=== PATIENT | male | born 1970 | race Caucasian/White ===

== ENCOUNTER 2017-04-21 16:35 | Emergency (ER) | payer OTHER ==
[~2017-04-21] VITALS: Ht 180.3 cm; Wt 119.0 kg
[~2017-04-21 16:35] MED LIST: CTP1; DSY50; LISI-461; PRLSR20 PO; SERT-234; SNG10
[2017-04-21 16:42] VITALS: BP 140/84; PULSE 93; TEMP 37.3; Ht 180.3 cm; Wt 119.0 kg
[2017-04-21 16:46] VITALS: O2SAT 99
[2017-04-21] MEDS ORDERED: ALBUT/IPRATROP 3MG/0.5MG NEB 3 ML VIAL INH STA (16:51)
[2017-04-21 16:55] VITALS: O2SAT 96
[2017-04-21] MEDS ORDERED: GLC/500 PO (17:10)
[2017-04-21] MEDS ORDERED: CARV3.122 PO (17:10)
[2017-04-21] MEDS ORDERED: SPRIN/30 INH (17:10)
[2017-04-21] MEDS ORDERED: GABA-113 PO (17:10)
--- NOTE | 2017-04-21 17:38 | EMERGENCY ROOM VISIT NOTE ---
History Report prepared by Annamarie: Jose J Brian Under the Supervision of: Dr. Colin Rob D.O. First contact with patient: 16:42 Chief Complaint: SHORTNESS OF BREATH Stated Complaint: SOB History of Present Illness The patient is a 46 year old male who presents to the Emergency Room with complaints of shortness of breath that began earlier today. The patient presents from [facility]. He was being transferred to [facility] today, but corrections decided to send him back. However, there was not a bus that could take him back to [place], so he was going to be sent somewhere else. He has a history of COPD and became dyspneic during these transfers. He denies any other symptoms. Source of History: patient Onset: today Position: other (Respiratory System) Symptom Intensity: mild Quality: other (SOB) Timing: constant Note: He denies any other symptoms Review of Systems See HPI for pertinent positives & negatives. A total of 10 systems reviewed and were otherwise negative. Past Medical & Surgical Medical Problems: (1) COPD (chronic obstructive pulmonary disease) Family History Patient reports no known family medical history. Social History Smoking Status: Current Every Day Smoker Drug Use: none Marital Status: single Housing Status: other (Incarcerated) Occupation Status: other (Incarcerated) Current/Historical Medications Scheduled Carvedilol (Coreg), 3.125 MG PO BID Gabapentin (Neurontin), 300 MG PO TID Metformin Hcl (Glucophage), 500 MG PO BID Tiotropium [place] (Spiriva Handihaler), 1 CAP INH DAILY Allergies Coded Allergies: Aspirin (Verified Allergy, Mild, 04/21/17) Adhesives (Verified Adverse Reaction, Intermediate, PAPER TAPE - BLISTERS , 04/21/17) Physical Exam Vital Signs Date Time Temp Pulse Resp B/P (MAP) Pulse Ox O2 Delivery O2 Flow Rate FiO2 04/21/17 16:55 96 Room Air 04/21/17 16:46 99 Nasal Cannula 2.0 04/21/17 16:42 37.3 93 20 140/84 98 Nasal Cannula 2.0 Physical Exam CONSTITUTIONAL/VITAL SIGNS: Reviewed / noted above. GENERAL: Non-toxic in appearance. INTEGUMENTARY: Warm, dry, and [place]. HEAD: Normocephalic. EYES: without scleral icterus or trauma. ENT/OROPHARYNX: clear and moist. LYMPHADENOPATHY/NECK: Is supple without lymphadenopathy or meningismus. RESPIRATORY: Lungs clear and equal. CARDIOVASCULAR: Regular rate and rhythm. GI/ABDOMEN: Soft and nontender. No organomegaly or pulsatile mass. No rebound or guarding. Normal bowel sounds. EXTREMITIES: Warm and well perfused. BACK: No CVA tenderness. NEUROLOGICAL: Intact without focal deficits. PSYCHIATRIC: normal affect. MUSCULOSKELETAL: Normally developed with good muscle tone. Medical Decision & Procedures Laboratory Results ED Course 1642: Previous medical records were reviewed. The patient was evaluated in room B5. A complete history and physical examination was performed. 1712: On reevaluation, the patient is resting. I discussed the results and findings with the patient. He verbalized agreement of the treatment plan. He was discharged home. Medical Decision Differentials considered include acute myocardial infarction, acute coronary syndrome, myocarditis, pericarditis, pericardial effusions /tamponade, esophageal perforation, pulmonary embolism, pneumonia, pneumothorax, cardiomyopathy, congestive heart, anemia , COPD/asthma exacerbation. This is a 46-year-old male who presents to the ED with a chief complaint of some shortness of breath. The patient was reportedly transported up here because of warrants for his arrest in [facility] and also in [place]. The patient stated to the officer that he was having some shortness of breath. He reports a history of COPD. The patient's physical exam was unremarkable. His lungs are clear. He is in no distress. Saturation vital signs are normal. He is afebrile. After evaluating the patient, the patient was felt to be stable for transportation to the local custodial. Medication Reconcilliation Current Medication List: was personally reviewed by me Blood Pressure Screening Patient's blood pressure: Normal blood pressure Blood pressure disposition: Did not require urgent referral Impression Primary Impression: Dyspnea Additional Impression: COPD (chronic obstructive pulmonary disease) Scribe Attestation The scribe's documentation has been prepared under my direction and personally reviewed by me in its entirety. I confirm that the note above accurately reflects all work, treatment, procedures, and medical decision making performed by me. Departure Information Dispostion Home / Self-Care Referrals Paco Escoto Jr., M.D. (PCP) Forms HOME CARE DOCUMENTATION FORM, IMPORTANT VISIT INFORMATION Patient Instructions My [facility] Additional Instructions Follow-up with your doctor for further care and evaluation in 3-5 days. Return to the emergency department for worsening or new symptoms or any concerns. You have been examined and treated today on an emergency basis only. This is not a substitute for, or an effort to provide, complete comprehensive medical care. It is impossible to recognize and treat all injuries or illnesses in a single emergency department visit. It is therefore important that you follow up closely with your doctor. Call as soon as possible for an appointment. Problem Qualifiers
== END 2017-04-21 17:13 | disposition home or self-care (01) ==
LOC: EDBD 16:35 → C.EDB 16:36
DX: R06.00 Dyspnea, unspecified (principal); J44.9 Chronic obstructive pulmonary disease, unspecified; F17.200 Nicotine dependence, unspecified, uncomplicated